=== PATIENT | female | born 1960 | race Caucasian/White ===

== ENCOUNTER 2020-07-21 12:17 | Emergency (ER) | payer OTHER ==
[2020-07-21] MEDS ORDERED: DIPH/PERTUSS(ACELL)/TETANUS VAC/PF 0.5 ML SYR (>=10YO) IM ONE (12:31)
[2020-07-21] MEDS ORDERED: DOXYCYCLINE HYCLATE 100 MG TABLET PO ONE (12:31)
[2020-07-21] MEDS ORDERED: LIDOCAINE 1% INJ-PF (10 MG/ML) 30 ML SDV INJ ONE (12:34)
--- NOTE | 2020-07-21 12:37 | ER Document Report ---
HPI - HPI Patient complains to provider of: [place] in foot Time Seen by Provider: 07/21/20 12:28 Onset: Just prior to arrival Onset/Duration: Sudden Quality of pain: Achy Pain Level: 1 Context: Patient states she went for a swim and got a fishhook in her foot. Patient with retained hook to the lateral aspect of her right foot. Associated Symptoms: None Exacerbated by: Walking Relieved by: Denies Similar symptoms previously: No Recently seen / treated by doctor: No - ROS ROS below otherwise negative: Yes Systems Reviewed and Negative: Yes All other systems reviewed and negative - NEURO Neurology: DENIES: Weakness - GASTROINTESTINAL Gastrointestinal: DENIES: Nausea - MUSCULOSKELETAL Musculoskeletal: REPORTS: Extremity pain - DERM Skin Color: Normal Notes: Subcutaneous foreign body to foot Past Medical History - General Information source: Patient - Social History Smoking Status: Never Smoker Chew tobacco use (# tins/day): No Frequency of alcohol use: Occasional Drug Abuse: Marijuana Occupation: [employer] Lives with: Family Family History: Reviewed & Not Pertinent Patient has homicidal ideation: No - Medical History Medical History: Negative Past Surgical History: Reports: Hx Orthopedic Surgery - Immunizations Hx Diphtheria, Pertussis, Tetanus Vaccination: No Vertical Provider Document - CONSTITUTIONAL Agree With Documented VS: Yes Exam Limitations: No Limitations General Appearance: WD/WN, No Apparent Distress - HEENT HEENT: Atraumatic, Normocephalic - NECK Neck: Normal Inspection - RESPIRATORY Respiratory: No Respiratory Distress - CARDIOVASCULAR Pulses: Normal: Dorsalis pedis - MUSCULOSKELETAL/EXTREMETIES Musculoskeletal/Extremeties: MAEW - NEURO Level of Consciousness: Awake, Alert, Appropriate Motor/Sensory: No Motor Deficit - DERM Integumentary: Warm, Dry Notes: Patient with fishhook foreign body to the lateral aspect of the right fifth foot Course - Re-evaluation Re-evalutation: 07/21/20 13:29 After foot was anesthetized, fishhook was removed, patient tolerated well. Wound was then cleansed and dressed. Patient advised of worsening signs or symptoms that she should return immediately for. Patient verbalized understanding and is agreeable discharge plan of care. - Vital Signs Vital signs: Temp Pulse Resp BP Pulse Ox 97.9 F 81 16 162/80 H 100 07/21/20 12:30 07/21/20 12:24 07/21/20 12:24 07/21/20 12:24 07/21/20 12:24 - Diagnostic Test Radiology reviewed: Image reviewed, Reports reviewed Discharge - Discharge Clinical Impression: Foreign body in subcutaneous tissue Condition: Stable Disposition: HOME, SELF-CARE Instructions: Doxycycline ([facility]), Dressing Instructions for Open Wounds ([facility]), Removal of Subcutaneous Foreign Object ([facility]), Tetanus Immunization Given ([facility]) Additional Instructions: Return immediately for any new or worsening symptoms Followup with your primary care provider, call tomorrow to make a followup appointment Monitor for any signs of infection such as redness, streaks, purulent drainage fever or worsening pain symptoms. Return as needed for any worsening symptoms Prescriptions: Doxycycline Hyclate 100 mg PO BID #10 tablet. Naproxen [Naprosyn 250 Nmg Tablet] 1 tab PO BID #14 tablet Forms: Return to Work Referrals: [facility] ([facility]) [Provider Group] - Follow up as needed
--- NOTE | 2020-07-21 13:14 | RADIOLOGY REPORT (SQ) ---
EXAM DESCRIPTION: FOOT RIGHT COMPLETE IMAGES COMPLETED DATE/TIME: 07/21/2020 12:53 pm REASON FOR STUDY: fish hook FB COMPARISON: None. NUMBER OF VIEWS: Three views. TECHNIQUE: AP, lateral and oblique without weight bearing radiographic images acquired of the right foot. LIMITATIONS: None. FINDINGS: MINERALIZATION: Normal. BONES: No acute fracture or dislocation. No worrisome bone lesions. No significant osteophytes. Mode rate plantar and Achilles calcaneal enthesophytes are present. JOINTS: No erosions. No sowmya-articular osteopenia. No chondrocalcinosis. SOFT TISSUES: Metallic fish hook is present in the soft tissues over the lateral aspect of the foot. OTHER: No other significant finding. IMPRESSION: Metallic fish hook in the soft tissues over the lateral aspect of the foot. No underlyi ng fracture. TECHNICAL DOCUMENTATION: JOB ID: [id number] 2010 [employer]- All Rights Reserved Reading location - IP/workstation name: [email or web address]
[2020-07-21 13:49] VITALS: BP 158/72
== END 2020-07-21 13:48 | disposition home or self-care (01) ==
LOC: ER 12:17
DX: S90.851A Superficial foreign body, right foot, initial encounter (principal); W45.8XXA Other foreign body or object entering through skin, initial encounter; Y93.11 Activity, swimming; F12.10 Cannabis abuse, uncomplicated
CPT/HCPCS: 90715; 96372; 99283